=== PATIENT | female | born 1995 | race Caucasian/White ===

== ENCOUNTER 2019-09-03 20:52 | Emergency (ER) | payer OTHER ==
[~2019-09-03] VITALS: Ht 162.6 cm; Wt 63.5 kg
[2019-09-03] MEDS ORDERED: DEXAMETHASONE SOD PHOSPHATE 4 MG/ML VIAL ONE (21:55)
[2019-09-03] MEDS ORDERED: PROCHLORPERAZINE EDISYLATE 10 MG/2 ML VIAL ONE (21:55)
[2019-09-03] MEDS ORDERED: diphenhydrAMINE HCL 50 MG/ML VIAL ONE (21:55)
[2019-09-03] MEDS ORDERED: KETOROLAC TROMETHAMINE INJ 30 MG/ML VIAL ONE (21:56)
[2019-09-03] MEDS ORDERED: DEXAMETHASONE SOD PHOSPHATE 4 MG/ML VIAL IV ONE (22:00)
[2019-09-03] MEDS ORDERED: KETOROLAC TROMETHAMINE INJ 30 MG/ML VIAL IV ONE (22:00)
[2019-09-03] MEDS ORDERED: diphenhydrAMINE HCL 50 MG/ML VIAL IV ONE (22:00)
[2019-09-03] MEDS ORDERED: PROCHLORPERAZINE EDISYLATE 10 MG/2 ML VIAL IVP ONE (22:00)
[2019-09-03] MEDS ORDERED: IV NS 0.9% 1,000 ML BAG IV ONE (22:00)
--- NOTE | 2019-09-03 22:10 | NUR ---
BIBS FROM HOME TO ER BED 16. AAOX4. NOT IN RESP DISTRESS. AMBULATORY. CAME IN FOR MIGRAINE HEADACHE 2 HRS [employer]. PER PT SHE USUALLY TAKES IMITREX FOR THE MIGRAINE BUT SHE IS OUT OF IT. PT DID REPORT VOMMITING AND NAUSEA. SHANNAN GODOY AT BEDSIDE FOR EVAL. ORDERS RECEIVED, NOTED AND CARRIED OUT.
--- NOTE | 2019-09-03 22:54 | NUR ---
Patient discharged to home in stable condition. Written and verbal after care instructions given. Patient verbalizes understanding of instruction.IV removed. Catheter intact and site benign. Pressure and 4x4 applied to site. No bleeding noted. Pt ambulatory with a steady gait
[2019-09-03 22:55] VITALS: BP 110/60
== END 2019-09-03 22:56 | disposition home or self-care (01) ==
LOC: ER 20:56
DX: G43.909 Migraine, unspecified, not intractable, without status migrainosus (principal); R11.2 Nausea with vomiting, unspecified
CPT/HCPCS: 84703; 96361; 96374; 96375; 99284; J0780; J1100; J1200; J1885; J7030